=== PATIENT | male | born 1975 | race Caucasian/White ===

== ENCOUNTER 2017-12-22 07:50 | Emergency (ER) | payer SELFPAY ==
[~2017-12-22] VITALS: Ht 185.4 cm; Wt 84.0 kg
[~2017-12-22 07:50] MED LIST: LORA1TAB12 PO; NAPR220T95 PO; PRED20 PO
[2017-12-22 07:52] VITALS: BP 124/68; PULSE 80; RESP 14; TEMP 97.4; O2SAT 100
[2017-12-22] MEDS ORDERED: LIDOCAINE 1%/EPINEPHrine 1:100,000 SOLN 20 ML VIAL INFIL ONE (08:15)
[2017-12-22] MEDS ORDERED: TETANUS/DIPHTHERIA TOXOID ADULT 0.5 ML VIAL IM ONE (08:15)
[2017-12-22] MEDS ORDERED: SODIUM CHLORIDE 0.9% FLUSH 10 ML FLUSH IVF PRN (08:15)
[2017-12-22] MEDS ORDERED: LIDOCAINE 1%/EPINEPHrine 1:100,000 SOLN 30 ML VIAL ONE (08:16)
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
[2017-12-22] MEDS ORDERED: NICOTINE 21 MG/24 HR PATCH T-DERMAL ONE (11:00)
== END 2017-12-22 11:53 | disposition home or self-care (01) ==
LOC: NEPE 07:50
DX: S02.32XA Fracture of orbital floor, left side, initial encounter for closed fracture (principal); I10 Essential (primary) hypertension; J43.9 Emphysema, unspecified; I25.2 Old myocardial infarction; F12.90 Cannabis use, unspecified, uncomplicated; Y04.2XXA Assault by strike against or bumped into by another person, initial encounter; Z72.0 Tobacco use
CPT/HCPCS: 12011; 70450; 70486